=== PATIENT | female | born 1950 | race Caucasian/White ===

== ENCOUNTER 2017-11-23 11:13 | Emergency (ER) | payer OTHER ==
[~2017-11-23 11:13] MED LIST: FOSA35TA2 PO; LORT5TAB PO; OS-CTAB3 PO; PRIL20TA2 PO
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
[2017-11-23] MEDS ORDERED: TETANUS/DIPHTHERIA TOXOID ADULT 0.5 ML VIAL IM ONE (11:30)
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
[2017-11-23] MEDS ORDERED: ACETAMINOPHEN/CODEINE 300 MG/30 MG TAB PO ONE (13:30)
[2017-11-23 13:33] VITALS: BP 151/67; PULSE 96; RESP 17; TEMP 98.2; O2SAT 98
[2017-11-23] MEDS ORDERED: TYLETAB34 PO (13:34)
== END 2017-11-23 14:24 | disposition home or self-care (01) ==
LOC: NEPD 11:13
DX: S09.90XA Unspecified injury of head, initial encounter (principal); S01.81XA Laceration without foreign body of other part of head, initial encounter; S91.109A Unspecified open wound of unspecified toe(s) without damage to nail, initial encounter; I10 Essential (primary) hypertension; Z23 Encounter for immunization
CPT/HCPCS: 12013; 70450; 72125; 90471; 90714